=== PATIENT | female | born 1990 | race Caucasian/White ===

== ENCOUNTER 2017-07-18 03:07 | Inpatient (IN) | payer OTHER ==
[~2017-07-18] VITALS: Ht 167.6 cm; Wt 76.2 kg
--- NOTE | 2017-07-18 04:33 | NUR ---
DR GARG AT BEDSIDE FOR MSE
--- NOTE | 2017-07-18 04:51 | NUR ---
PT MEDICATED PER MD ORDERS; PLEASE SEE EMAR
--- NOTE | 2017-07-18 05:03 | NUR ---
PT PICKED UP BY CT VIA GURNEY. NO SX OF DISTRESS NOTED. HILARY PADRON MADE AWARE.
--- NOTE | 2017-07-18 05:09 | NUR ---
PT BROUGHT BACK TO FROM CT
[2017-07-18 05:21] LABS: UA SPECIFIC GRAVITY >=1.030 (1.005-1.035); microscopic required? YES; urine erythrocyte 3+ (NEGATIVE)
--- NOTE | 2017-07-18 06:21 | NUR ---
PT LAYING IN GURNEY IN POSITION OF COMFORT. PT PROVIDED [place] PER DR GARG. PT DENIED ANY ALLERGIES TO FOOD. PT PLACED IN HIGH FOWLERS POSITION
[2017-07-18 06:31] LABS: CARBON DIOXIDE 28.2 mmol/L (21-32); CHLORIDE SERUM 102 mmol/L (98-107); CREATININE SERUM 0.7 mg/dL (0.6-1.0); GFR1 > 60 mL/min; GLUCOSE SERUM 110 mg/dL (74-106); POTASSIUM SERUM 4.2 mmol/L (3.5-5.1); SODIUM SERUM 136 mmol/L (136-145)
[2017-07-18 06:35] LABS: BASOPHIL % 1.1 % (0-2); PLATELET COUNT 330 x10^3mcL (130-400); RED CELL DISTRIBUTION WIDTH 12.8 % (11.5-14.5)
[2017-07-18 06:37] LABS: ALBUMIN 3.2 g/dL (3.4-5.0); ALKALINE PHOSPHATASE 94 U/L (46-116); ALT/SGPT 62 U/L (14-59); AST/SGOT 42 U/L (15-37); BILIRUBIN TOTAL 0.31 mg/dL (0.20-1.00); TOTAL PROTEIN, SERUM 7.3 g/dL (6.4-8.2)
--- NOTE | 2017-07-18 07:13 | NUR ---
PT CHANGED INTO A HOSPITAL GOWN. PT RESTING IN A POSITION OF COMFORT IN LOW POSITIONED BED WITH SIDE RAILS UP X 2 AND CALL LIGHT WITHIN REACH. PT DENIES ANY PAIN AT THIS TIME. VITAL SIGNS STABLE.
--- NOTE | 2017-07-18 07:42 | NUR ---
REPORT CALLED TO HILARY QUEEN TO ASSUME CARE FOR THIS PT POST TRANSFER FROM ED TO TELE UNIT
[2017-07-18 08:40] LABS: CHOLESTEROL/HDL RATIO 3.6; PHOSPHOROUS 3.2 mg/dL (2.5-4.9)
[2017-07-18 08:42] LABS: T3 TOTAL 0.97 ng/mL
--- NOTE | 2017-07-18 09:15 | NUR ---
PT TRANSPORTED TO TELE FLOOR VIA PORTABLE CM WITH TIFFANIE RICHARD AND DEVIN EMT. PT IN NO DISTRESS. MATTRESS INSPECTOR RESUMING CARE OF PT IN TELE FLOOR. PT DC'D FROM ED AT THIS TIME
--- NOTE | 2017-07-18 09:20 | NUR ---
PATIENT RECEIVED FROM ED VIA GUERNEY. PATIENT IS AAOX4. TELE MONITOR [address] SHOWING SR. MODERATE PULSES BUE AND BLE. LUNGS CTA. RESPIRATIONS EVEN AND UNLABORED ON ROOM AIR. SPO2 99%. BOWEL SOUNDS ACTIVE. PATIENT IS AMBULATORY. SKIN INTACT. PT STATES THAT SHE IS HAVING INTERMITTENT PAIN IN THE RIGHT UPPER BACK. STATES THAT PAIN IS TOLERABLE AT THE MOMENT. 20G IV IN RFA IS PATENT AND APPEARS WNL. PATIENT IS CALM AT THIS MOMENT. FAMILY AT BEDSIDE. CALL LIGHT WITHIN REACH. WILL CONTINUE TO MONITOR. ALL SAFETY MEASURES IN PLACE.
[2017-07-18 09:32] VITALS: BP 110/63
[2017-07-18 09:40] LABS: FREE T4 1.17 ng/dL (0.76-1.46); T4(THYROXINE) 8.5 ug/dL (4.7-13.3)
--- NOTE | 2017-07-18 10:20 | NUR ---
PATIENT HAS BEEN INSTRUCTED IN USE OF CHG WIPES PRIOR TO SCHEDULED PROCEDURE. PATIENT STARTED TO USE THE WIPES AND TO REMOVE ALL JEWELRY. PT STATES THAT SHE IS HAVING SOME VAGINAL BLEEDING, STATES THAT SHE IS ON HER PERIOD.
--- NOTE | 2017-07-18 13:47 | NUR ---
PATIENT HAS BEEN TAKEN FOR SCHEDULED PROCEDURE. REPORT GIVEN TO HILARY CHRISTIAN.
--- NOTE | 2017-07-18 16:38 | NUR ---
PATIENT HAS RETURNED FROM SCHEDULED PROCEDURE. PT IS AAO X4. PATIENT HAS 3 INCISIONS ON HER ABDOMEN, DERMABOND USED. NO BLEEDING NOTED. NS INFUSING AT 80CC/HR. TELE MONITOR 12 CONNECTED. CALL LIGHT WITHIN REACH. WILL CONTINUE TO MONITOR.
--- NOTE | 2017-07-18 16:42 | NUR ---
RECEIVED PATIENT FROM OR, PATIENT ALERT AND ORIENTED, C/O PAIN TO ABD WILL MEDICATE ORDERED, VS- BP 110/64, HR 81, RR 20, TEMP 98.8, O2 SAT 98% RA, PAIN 03/25, PRIMARY NURSE AND CHARGE NURSE AWARE, WILL ENDORSE CARE TO PRIMARY NURSE BRET RICHARD
[2017-07-18 17:03] VITALS: BP 98/62
--- NOTE | 2017-07-18 19:25 | NUR ---
RECEIVED PT IN BED AWAKE, ALERT,ORIENTED X4 W/ MOTHER AT BEDSIDE. NO SOB ON RA. BOWEL SOUNDS HYPOACTIVE. PT IS S/P LAP. APPY. SHE HAS NO C/O PAIN AT THIS TIME. PT STATED SHE HAS VAGINAL BLEEDING BUT SHE IS NOT ON HER PERIOD. PT STATED SHE TOLD THE RESIDENT ABOUT IT. W/ IVF NS AT 80 CC/HR VIA RTFA. CALL LIGHT W/IN REACH.
--- NOTE | 2017-07-18 19:26 | NUR ---
REPORT GIVEN TO NOC NURSE. AT THIS TIME THE PATIENT IS RESTING IN BED. NO SIGNS OF ACUTE DISTRESS. RESPIRATIONS EVEN AND UNLABORED ON ROOM AIR. FAMILY AT BEDSIDE. IV INFUSING PER ORDER. TELE MONITOR IN PLACE. SCDS IN PLACE. CALL LIGHT WITHIN REACH.
[2017-07-18 21:35] VITALS: BP 104/60
--- NOTE | 2017-07-18 23:30 | NUR ---
PT GIVEN JELLO AND APPLE JUICE. PT TOLERATED IT WELL.
--- NOTE | 2017-07-19 03:40 | NUR ---
PT ASLEEP COMFORTABLY. NO C/O PAIN .
--- NOTE | 2017-07-19 04:32 | NUR ---
PT C/O PAIN TO SX SITE 03/25. NORCO 7.5/325 MG PO GIVEN.
--- NOTE | 2017-07-19 04:46 | NUR ---
PT ASSISTED TO RESTROOM. SHE WAS ABLE TO VOID W/O DIFFICULTY.
--- NOTE | 2017-07-19 05:30 | NUR ---
PT VERBALIZED MOD. RELIEF OF PAIN AFTER TAKING NORCO PO.
[2017-07-19 05:33] VITALS: BP 110/72
[2017-07-19 06:04] LABS: PLATELET COUNT 325 x10^3mcL (130-400); RED CELL DISTRIBUTION WIDTH 13.3 % (11.5-14.5)
--- NOTE | 2017-07-19 06:06 | NUR ---
PT RESTING IN BED. SHE SLEPT THROUGH THE NIGHT. SHE WAS MEDICATED FOR PAIN X1 W/ MOD. RELIEF. SHE TOLERATED CLEAR LIQUIDS. PT AMBULATED TO RESTROOM AND VOIDED X1. PT STATED SHE IS NOT PASSING GAS YET NOR BURPING. IVF NS AT 80 CC/HR INFUSING WELL VIA RTFA.
[2017-07-19 06:15] LABS: CALCIUM 8.4 mg/dL (8.5-10.1); CARBON DIOXIDE 25.3 mmol/L (21-32); CHLORIDE SERUM 104 mmol/L (98-107); CREATININE SERUM 0.7 mg/dL (0.6-1.0); GFR1 > 60 mL/min; GLUCOSE SERUM 113 mg/dL (74-106); POTASSIUM SERUM 4.3 mmol/L (3.5-5.1); SODIUM SERUM 138 mmol/L (136-145)
[2017-07-19 06:45] LABS: BASOPHIL % 0 % (0-2)
--- NOTE | 2017-07-19 07:40 | NUR ---
RECEIVED PT FROM NIGHT NURSE IN NO ACUTE DISTRESS. PT ASLEEP IN BED, RESPIRATIONS EVEN AND UNLABORED ON RA. IVF INFUSING AT BEDSIDE. BED IN LOWEST POSITION. CALL LIGHT WITHIN REACH. WILL CONTINUE TO MONITOR.
[2017-07-19 09:18] VITALS: BP 114/84
--- NOTE | 2017-07-19 09:43 | NUR ---
REHAB NOTES RECEIVED CANCELLATION ORDER FOR SWALLOW EVAL.
--- NOTE | 2017-07-19 12:47 | NUR ---
PT RESTING IN BED IN NO ACUTE DISTRESS. AAOX4. RESPIRATIONS EVEN AND UNLABORED ON RA. ATB'S INFUSING AT BEDSIDE. PAIN TOLERABLE AT THIS TIME. BED IN LOWEST POSITION. CALL LIGHT WITHIN REACH. WILL CONTINUE TO MONITOR.
[2017-07-19 13:46] VITALS: BP 122/80
[2017-07-19 16:28] VITALS: BP 125/82
--- NOTE | 2017-07-19 19:04 | NUR ---
PT RESTING IN BED IN NO ACUTE DISTRESS. RESPIRATIONS EVEN AND UNLABORED ON RA. AAOX4. IVF INFUSING AT BEDSIDE. FAMILY AT BEDSIDE. BED IN LOWEST POSITION. CALL LIGHT WITHIN REACH, WILL ENDORSE TO NIGHT NURSE.
[2017-07-19 19:35] VITALS: BP 113/66
--- NOTE | 2017-07-19 19:35 | NUR ---
RECEIVED PT AWAKE ALERT AN DVERBALLY RESPONSIVE WITH FAMILY AT BEDSIDE.S/P LAP APPENDECTOMY 07/18/17.ABDOMINAL INCISION WITH DERMABOND.ABDOMEN SOFT AND NON-DISTENDED.VOIDING,PASSING GAS/BURPING.ACTIVE BOWEL SOUNDS.ENCOURAGED AMBULATION AND DEMONSTRATED PROPER USE OF INCENTIVE SPIROMETER,DOING 1000.DENIES ANY PAIN.BP 113/66 MMHG,HR 104.WILL CONTINUE TO MONITOR.
[2017-07-19 20:27] VITALS: BP 124/79
--- NOTE | 2017-07-20 04:58 | NUR ---
PT SLEPT WELL ALL NIGHT.DENIES ANY PAIN OR DISCOMFORT.NO ASE NOTED FROM FLAGYL IV ATB.AMBULATED IN THE HALLWAY AND WELL TOLERATED.CONTINUE TO ENCOURAGE AMBULATION AND DEEP BREATHING EXERCISES.ALL NEEDS MET.WILL CONTINUE TO MONITOR.
[2017-07-20 05:22] VITALS: BP 118/79
[2017-07-20 06:20] LABS: BASOPHIL % 0.3 % (0-2); PLATELET COUNT 302 x10^3mcL (130-400); RED CELL DISTRIBUTION WIDTH 13.3 % (11.5-14.5)
[2017-07-20 06:30] LABS: CALCIUM 8.1 mg/dL (8.5-10.1); CARBON DIOXIDE 23.5 mmol/L (21-32); CHLORIDE SERUM 106 mmol/L (98-107); CREATININE SERUM 0.7 mg/dL (0.6-1.0); GFR1 > 60 mL/min; GLUCOSE SERUM 86 mg/dL (74-106); POTASSIUM SERUM 4.1 mmol/L (3.5-5.1); SODIUM SERUM 139 mmol/L (136-145)
--- NOTE | 2017-07-20 07:20 | NUR ---
PT WAS ENDORSE TO ME THIS MORNING. SLEEPING VERY COMFORTABLE. TELE 12 SR HR 87. NO RESP DISTRESS OR SOB NOTED. SP LAP APPY WTIH DERMABOND, INTACT AND NO DRAINAGE NOTED. IV TO THE RFA PATENT AND INTACT. WILL CONTINUE PLAN OF CARE.
--- NOTE | 2017-07-20 09:12 | NUR ---
PT C/O ABD PAIN 05/26. MEDICATED PER EMAR.
[2017-07-20 09:32] VITALS: BP 129/80
[2017-07-20 10:31] VITALS: BP 129/80
--- NOTE | 2017-07-20 13:05 | NUR ---
PT IS SITTING UP IN BED AA/O X4 WITH HER SISTER BY HER SIDE. PT STATES HER ABD PAIN IS MUCH BETTER. 0/10. IS TOLERATING HE LUNCH WELL. WILL CONTINUE PLAN OF CARE.
[2017-07-20] MEDS ORDERED: LEVAQUIN500 M1 PO (13:10)
[2017-07-20] MEDS ORDERED: COLACE100 MG PO (13:13)
[2017-07-20] MEDS ORDERED: LAC PO (13:15)
[2017-07-20] MEDS ORDERED: APAP/HYDROCODON1 T13 PO (13:16)
[2017-07-20 13:53] VITALS: BP 127/85
--- NOTE | 2017-07-20 14:07 | NUR ---
REMOVED PT IV TO THE RFA. A BIT OF SWELLING NOTED, EVELATED RFA AND APPLIED WARM COMPRESS. REMOVED TELE 12.
--- NOTE | 2017-07-20 14:30 | NUR ---
EXPLAINED DISCHARGE INSTRUCTIONS, MEDICATIONS AND FOLLOW UP APPOINTMENTS TO PT AND HER SISTER. PT AGREED AND SIGNED ALL DOCUMENTS. PICTURES TAKEN OF PT ABD (SPLAP APPY) PT WILL CALL NURSE STATION WHEN SHE IS READY TO LEAVE. CALL LIGHT IN REACH.
--- NOTE | 2017-07-20 15:00 | NUR ---
PT AA/OX4. BREATHING EVEN AND UNLABORED. VS STABLE. BREATHING EVEN AND UNLABORED, NO RESP DISTRESS OR SOB NOTED. PT C/O ABD PAIN 03/25. MEDICATED PER EMAR. WHEELED PT AND HER SISTER DOWN TO DISCHARGE LOBBY. PT SISTER WILL BE DRIVING HER HOME.
== END 2017-07-20 14:50 | disposition home or self-care (01) | DRG 710 ==
LOC: ED 03:07 → DU 07:21
PROVIDERS: Emergency Medicine; Family Medicine Sports Medicine; Surgery; ADMIT Family Medicine
PROC: 0DTJ4ZZ Resection of Appendix, Percutaneous Endoscopic Approach (ICD-10-PCS; principal; 2017-07-18 13:00)
DX: A41.9 Sepsis, unspecified organism (principal); N17.0 Acute kidney failure with tubular necrosis; E44.0 Moderate protein-calorie malnutrition; J90 Pleural effusion, not elsewhere classified; K35.80 Unspecified acute appendicitis; N39.0 Urinary tract infection, site not specified; N20.0 Calculus of kidney; R31.9 Hematuria, unspecified; Z68.26 Body mass index [BMI] 26.0-26.9, adult; D64.9 Anemia, unspecified
CPT/HCPCS: 82962; 83880; 84439; 94150; J0330; J1885; J1956; J2250; J2270; J2405; J2543; J2704; J2710; J3010; J3490; J7030; J7120; Q0092

== ENCOUNTER 2020-04-12 17:19 | Emergency (ER) | payer OTHER, SELFPAY ==
[~2020-04-12] VITALS: Ht 165.1 cm; Wt 71.7 kg
[~2020-04-12 17:19] MED LIST: APAP/HYDROCODON1 T13 PO; COLACE100 MG PO; LAC PO; LEVAQUIN500 M1 PO
[2020-04-12 17:21] VITALS: Ht 165.1 cm; Wt 71.7 kg
[2020-04-12 19:45] VITALS: BP 157/103
== END 2020-04-12 19:45 | disposition home or self-care (01) ==
LOC: ED 17:19
DX: U07.1 COVID-19 (principal)
CPT/HCPCS: Q0092; U0003-CS